=== PATIENT | male | born 1990 | race Native Hawaiian/Other Pacific Islander ===

== ENCOUNTER 2021-01-16 03:56 | Emergency (ER) | payer SELFPAY ==
[2021-01-16] MEDS ORDERED: dexAMETHasone 20 MG/5 ML VIAL IV ONE (04:11)
[2021-01-16] MEDS ORDERED: ALBUTEROL 2.5 MG/3 ML NEBU IH ONE (04:11)
--- NOTE | 2021-01-16 04:16 | Event Note ---
ED Screening Note Date of service: 01/16/21 Time: 04:14 ED Screening Note: Patient is a 30-year-old male denies medical history who states he woke up with foreign body sensation to his throat denies suspicious food denies food or drug allergies. Symptoms of the past 2 hours. There are no exacerbating or relieving factors. There is no wheezing or stridor. This initial assessment/diagnostic orders/clinical plan/treatment(s) is/are subject to change based on patients health status, clinical progression and re- assessment by fellow clinical providers in the ED. Further treatment and workup at subsequent clinical providers discretion. Patient/guardian urged not to elope from the ED as their condition may be serious if not clinically assessed and managed. Initial orders include:
--- NOTE | 2021-01-16 05:00 | XRay Report ---
SOFT TISSUE NECK HISTORY: Foreign body in the throat. COMPARISON: None. TECHNIQUE: AP and lateral view(s) of the neck obtained. FINDINGS: Epiglottis: No significant abnormality. Airway: No significant abnormality. Retropharyngeal soft tissues: No significant abnormality. Bones: No significant abnormality. Additional findings: No appreciable radiopaque foreign bodies. IMPRESSION: 1. No appreciable radiopaque foreign bodies. Signer Name: Stanley Kiser MD Signed: 01/16/2021 4:56 AM Workstation Name: [id number]
--- NOTE | 2021-01-16 06:23 | Emergency Department Report ---
HPI - General Chief Complaint: Skin/Abscess/Foreign Body Time Seen by Provider: 01/16/21 06:09 - HPI HPI: Room 34 The patient is a 30-year-old male present with chief complaint of sore throat. The patient states approximate 2 hours ago he was awakened and felt a sore throat. Patient states he drank some water and then some DayQuil but he had a foreign body sensation in his throat. Patient states he will call occasionally coughed up saliva mixed with blood. Patient denies fever. Patient states last meal he had was [employer] and had no difficulty swallowing during the meal. The patient states he was asymptomatic when he went to sleep last night. ED Past Medical Hx - Past Medical History Previous Medical History?: Yes Hx Hypertension: Yes (Borderline) Additional medical history: Morbid Obesity - Surgical History Past Surgical History?: No - Family History Family history: no significant - Social History Smoking Status: Never Smoker Substance Use Type: None (Denies illicit drug use), Alcohol (Occasional) - Medications Home Medications: Home Medications Medication Instructions Recorded Confirmed Last Taken Type Amoxicillin [Amoxicillin TAB] 875 mg PO BID #14 tablet 01/16/21 Unknown Rx ED Review of Systems ROS: Stated complaint: SOMETHING STUCK IN THROAT Other details as noted in HPI Constitutional: denies: fever Eyes: denies: eye pain ENT: throat pain Respiratory: cough Cardiovascular: denies: chest pain Endocrine: no symptoms reported Gastrointestinal: denies: abdominal pain Genitourinary: denies: dysuria Musculoskeletal: denies: back pain Neurological: denies: headache Physical Exam - Physical Exam Vital Signs: Vital Signs 01/16/21 01/16/21 04:13 05:49 Temperature 98.1 F 98.0 F Pulse Rate 112 H 106 H Respiratory 20 16 Rate Blood Pressure 180/118 158/101 [Left] O2 Sat by Pulse 98 94 Oximetry Physical Exam: GENERAL: The patient is well-developed well-nourished male sitting on stretcher not appearing to be in acute distress. [] HEENT: Normocephalic. Atraumatic. Extraocular motions are intact. Patient has moist mucous membranes. Enlarged tonsil on the right NECK: Supple. Trachea midline. No stridor CHEST/LUNGS: Clear to auscultation. There is no respiratory distress noted. HEART/CARDIOVASCULAR: Regular. There is no tachycardia. There is no gallop rub or murmur. ABDOMEN: Abdomen is soft, nontender. Patient has normal bowel sounds. There is no abdominal distention. SKIN: There is no rash. There is no edema. There is no diaphoresis. NEURO: The patient is awake, alert, and oriented. The patient is cooperative. The patient has normal speech MUSCULOSKELETAL: There is no evidence of acute injury. ED Course Vital Signs 01/16/21 01/16/21 04:13 05:49 Temperature 98.1 F 98.0 F Pulse Rate 112 H 106 H Respiratory 20 16 Rate Blood Pressure 180/118 158/101 [Left] O2 Sat by Pulse 98 94 Oximetry ED Medical Decision Making - Radiology Data Radiology results: report reviewed (Lateral soft tissue neck x-ray, CT neck), image reviewed (Lateral soft tissue neck x-ray) interpreted by me: Lateral soft tissue neck x-ray-no evidence of epiglottitis. No prevertebral swelling. No foreign body seen - Differential Diagnosis Tonsillitis, pharyngitis, retropharyngeal abscess Critical care attestation.: If time is entered above; I have spent that time in minutes in the direct care of this critically ill patient, excluding procedure time. ED Disposition Clinical Impression: Tonsillitis, Submandibular sialolithiasis Disposition: - TO HOME OR SELFCARE Is pt being admited?: No Does the pt Need Aspirin: No Condition: Stable Instructions: Salivary Stone, Tonsillitis Additional Instructions: Return to the emergency department should you develop worsening symptoms, inability to tolerate food or liquids, high fever or any other concerns Prescriptions: Amoxicillin [Amoxicillin TAB] 875 mg PO BID #14 tablet Referrals: ELOY MORA MD [Primary Care Provider] - 3-5 Days FATEMEH RANGEL MD [Staff Physician] - 3-5 Days (Dr. Vu is an ear nose and throat doctor (mail officer). Please follow-up with him for further evaluation) Time of Disposition: 07:40
--- NOTE | 2021-01-16 07:35 | Cat Scan Report ---
CT NECK WITHOUT CONTRAST HISTORY: Sore throat, foreign body sensation COMPARISON: None. TECHNIQUE: Routine CT of the neck is performed following intravenous contrast. All CT scans at [facility] are performed using CT dose reduction for ALARA by means of automated exposure control. CONTRAST: 100 mL Omnipaque 300 FINDINGS: Skull Base: No significant abnormality. Parotid, Carotid, Retropharyngeal, Prevertebral, Pharyngeal Mucosal, and [employer]: There is mild bilateral tonsillar hypertrophy. There are no radiopaque foreign bodies. Airway: Patent and without significant abnormality. Lymphatics: No lymphadenopathy. Vasculature: No significant abnormality. Osseous Structures: No significant abnormality Additional findings: There is a 7 mm stone in the left submandibular gland. There is no appreciable d uctal obstruction. IMPRESSION: 1. No appreciable foreign bodies. 2. Mild bilateral tonsillar hypertrophy. 3. Left submandibular gland stone. Signer Name: Stanley Kiser MD Signed: 01/16/2021 7:30 AM Workstation Name: [id number]
[2021-01-16 08:26] VITALS: BP 143/80
== END 2021-01-16 08:25 | disposition home or self-care (01) ==
LOC: ED 03:56
DX: J03.90 Acute tonsillitis, unspecified (principal); K11.5 Sialolithiasis; I10 Essential (primary) hypertension; Z79.2 Long term (current) use of antibiotics
CPT/HCPCS: 70360; 70490; 94640; 96374; 99284; J1100